=== PATIENT | male | born 1990 | race African-American/Black ===

== ENCOUNTER 2020-10-06 18:20 | Emergency (ER) | payer SELFPAY ==
[~2020-10-06] VITALS: Ht 190.5 cm; Wt 100.0 kg
[2020-10-06] MEDS ORDERED: SODIUM CHLORIDE 0.9% 1,000 ML IV ONE (18:45)
[2020-10-06 21:10] VITALS: BP 112/68
[2020-10-06 21:14] LABS: BASOPHILS % 1.2 % (0.0-2.0); EOSINOPHILS % 0.3 % (0.0-5.0); HEMATOCRIT. 45.3 % (42.0-52.0); HEMOGLOBIN. 15.6 g/dL (14.0-18.0); LYMPHOCYTES % 35.1 % (20.0-50.0); MEAN CORPUSCULAR HEMOGLOBIN 33.9 pg (28.0-32.0); MEAN CORPUSCULAR VOLUME 98.4 fL (80.0-94.0); MEAN PLATELET VOLUME 7.3 fl (7.4-10.4); NEUTROPHILS % 55.4 % (40.0-76.0); PLATELET 381 x1000/uL (130-400); RED BLOOD CELL COUNT 4.61 mill/uL (4.7-6.1); RED CELL DISTRIBUTION WIDTH 12.9 % (11.6-14.6)
[2020-10-06 21:19] LABS: CHLORIDE 106 mEq/L (98-107)
[2020-10-06 21:38] LABS: ETHANOL BLOOD 483 mg/dL
== END 2020-10-06 22:44 | disposition left against medical advice (07) ==
LOC: ER 18:20
DX: F10.129 Alcohol abuse with intoxication, unspecified (principal); Y90.8 Blood alcohol level of 240 mg/100 ml or more; K70.10 Alcoholic hepatitis without ascites
CPT/HCPCS: 36415; 70450; 80053; 80320; 85025; 99284; J7030; G0480